=== PATIENT | male | born 2005 | race Caucasian/White ===

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

== ENCOUNTER → 2024-03-30 | Outpatient (CLI) | payer OTHER | LOC: M WUC 12:39 | PROVIDERS: ATTEND Nurse Practitioner Family | DX: M54.50 Low back pain, unspecified (principal) ==

== ENCOUNTER 2024-05-25 09:11 | Emergency (ER) | payer OTHER ==
[~2024-05-25] VITALS: Ht 182.9 cm; Wt 86.0 kg
[2024-05-25 11:49] VITALS: BP 118/58; TEMP 97; O2SAT 98
== END 2024-05-25 11:50 | disposition home or self-care (01) ==
LOC: M ED 09:11
DX: S60.032A Contusion of left middle finger without damage to nail, initial encounter (principal); S60.413A Abrasion of left middle finger, initial encounter; W22.09XA Striking against other stationary object, initial encounter; Y92.9 Unspecified place or not applicable; Y93.89 Activity, other specified; Y99.0 Civilian activity done for income or pay